=== PATIENT | male | born 1945 | race Caucasian/White ===

== ENCOUNTER 2016-05-11 10:14 | Day surgery (SDC) | payer MEDICARE, OTHER ==
[~2016-05-11] VITALS: Ht 170.2 cm; Wt 73.0 kg
[~2016-05-11 10:14] MED LIST: ASCO-294 PO; BENZ-12 PO; CA C1TAB35 PO; CITA40TA13 PO; LACT1CAP73 PO; LOVA20TA PO; Lactated Ringer's 1,000 ML IV ONE; METH750T3 PO; MULT-1007 PO; OMEG300C3 PO; OMEP20TA86 PO; PRED50TA PO; RESVERATROL; SUCR1TAB PO; UBID100C25 PO; VIT-10 PO; [UNRECOGNIZED DRUG - CODE] MC
[2016-05-11] MEDS ORDERED: Propofol 10,000 mCg/mL 20 mL Inj ONE (10:15)
[2016-05-11 11:04] VITALS: BP 128/71; PULSE 57; RESP 16; O2SAT 97
[2016-05-11] MEDS ORDERED: Lactated Ringer's 1,000 ML IV SCH (11:24)
--- NOTE | 2016-05-11 11:24 | PCM.HPANE ---
Patient Data Surgeon Admitting Provider: Attending Provider:Francisco Kwan MD Primary Care Physician:Shailesh Ferrell MD Other Provider:[facility] Reason for Visit Screening, Eosinophilic Esophagitis Ht/WT & BMI Height (Feet): 5 Height (Inches): 7 Weight (Kilograms): 73 Body Mass Index 25.00 Allergies Coded Allergies: No Known Allergies (Verified Allergy, Unknown, 05/11/16) Past Anesthesia History Anesthesia History: Denies:: Abnormal Airway, Anesthesia Reactions, Difficult Intubation, Fam Anesthesia Reaction, Fam Malignant Hypertherm, Malignant Hyperthermia Diabetes History Hx Diabetes?: No MRSA MRSA: No Medications Hypertension Medication: No Home Meds Incl Beta Rodney: No Reported Medications Omeprazole 20 Mg Tablet.dr20 Mg PO BID Ref 0 05/10/16 Ascorbate Calcium (Vitamin C)500 Mg Szdnjx918 Mg PO DAILY 09/02/15 Lactobacillus Combo No.11 (Probiotic)1 Each Cap.sprink1 Each PO DAILY 09/02/15 Vit A/C/E AC/Znox/Cupric Oxide (Eye Vitamin-Minerals Tablet)7,160-113 Tablet1 Each PO 09/02/15 Citalopram 40 Mg Aenmwm83 Mg PO DAILY 30 Days Ref 0 09/02/15 Ca Carb/D3/Argnin/Inos/Silicon (Bone Density Calcium + D Cplt)1 Each Tablet1 Each PO DAILY 09/02/15 Multivitamin (Multi-Vitamin Daily)1 Each TabletUnknown Dose PO 02/12/14 Calipatria-3 Fatty Acids (Fish Oil)300 Mg Fllyvmg722 Mg PO 02/12/14 Ubidecarenone (Co Q-10)100 Mg Rnuxlru052 Mg PO 02/12/14 Lovastatin 20 Mg Pzulfb29 Mg PO HS #30 TABLET Ref 0 02/12/14 Discontinued Reported Medications Benzonatate (Tessalon Perle)100 Mg Hnzqpfl938 Mg PO TID PRN For Cough 05/10/16 Prednisone (PredniSONE)50 Mg Inaouw50 Mg PO DAILY Ref 0 05/10/16 Sucralfate 1 Gm Tablet1 Gm PO QID 30 Days Ref 0 09/02/15 Methocarbamol 750 Mg Ttwljd921 Mg PO QID PRN For Spasm Ref 0 09/02/15 Boswellia Nicole Extract 25 Gm Mygneq86 Gm MC DAILY 09/02/15 [Resveratrol] No Conflict Check 02/12/14 History HEENT History: Denies:: Abnormal Airway Difficult Intubation Dysphagia Hearing Problem Denture Type: Full- Lower Hx of Heart Problems?: No Cardiovascular History: Denies:: AICD Atrial Fibrillation Chest Pain Hypertension Pacemaker Valvular Heart Disease Hx of Respiratory Problem?: No Respiratory History: Denies:: Asthma COPD Cough Hemoptysis Pneumonia Tuberculosis Neurological History: Denies:: CVA Hx of GI Problems?: Yes Gastrointestinal History: Positive for:: Gastroesphageal Reflux Denies:: Cirrhosis Diverticulitis Gall Bladder Disease Hiatal Hernia Rectal Bleeding Hx of Problems?: No Musculoskeletal History: Denies:: Joint Replacement Psycho Social History: Denies:: Anxiety Hx Depression Hx Surgeries?: Yes (ROTATOR CUFF RT AND LEFT, HERNIA, TESTICULAR CANCER) Hx Any Other Health Problems?: Yes Hx Diabetes: No Hx Alcohol Use: No Smoking Status: Never Smoker Stop/Bang Treated for Sleep Apnea?: No Do You Have a CPAP Machine?: No S-Snoring: Do You Snore Loudly: No T-Tired: feel tired, fatigued: No O-Obsered: Observed not breath: No P-Blood Pressure: treated: No B- Body Mass Index > 35 kg/m2: No A- Age over 50: Yes N- Neck Large Circumference: No G- Gender Male: Yes VISHAL Total Score: 2 VISHAL Risk Assessment: Low Risk, <3 Yes Risk Assessment Category Category 1A: Patient has history of documented sleep apnea, and HAS NOT received any narcotic, sedative or anesthesia administration during this stay. Category 1B: Patient has history of documented sleep apnea, and HAS received any narcotic , sedative or anesthesia administration during this stay Category 2: Patient has SUSPECTED Obstructive Sleep Apnea, and HAS received any narcotic , sedative or anesthesia administration during this stay. Category 3: Patient has SUSPECTED Obstructive Sleep Apnea and HAS NOT received narcotic, sedative or anesthesia administration during this stay. Category 4: Outpatient in Procedural Areas with known sleep apnea or who screen positive for High Risk via the STOP/BANG questionnaire. Exam Exam Vital Signs Vital Signs Date Time Temp Pulse Resp B/P Pulse Ox O2 Delivery O2 Flow Rate FiO2 05/11/16 11:04 36.5 57 16 128/71 97 Room Air General Appearance: Oriented X3 HEENT/AIRWAY: MP 2 Lungs: Normal Air Movement Heart: Regular Rate/Rhythm Plan Impression Patient chart reviewed, patient interviewed and anesthestic plan with risks, benefits, and alternatives discussed, and informed consent obtained. ASA Physical Status: ASA2 Mod Systemic Disease Anesthetic Plan: MAC Bene/Risks/Altern/Consents: Yes HP Complete Prior to Induction: Yes Chaka Jimenez MD May 11, 2016 11:24
[2016-05-11] MEDS ORDERED: Ondansetron 2 mg/mL 2 mL Inj IVPUSH PRN (11:25)
[2016-05-11] MEDS ORDERED: MetoCLOpramide 5 mg/mL 2 mL Inj IVPUSH PRN (11:25)
--- NOTE | 2016-05-11 12:13 | PCM.ENDEGD ---
EGD Date of Service: May 11, 2016 Physician Francisco Kwan MD Pre Procedure Diagnosis: EOE Post Procedure Dx & Findings: EOE Procedure Esophagogastroduodenoscopy PROCEDURE IN DETAIL: After proper sedation, Olympus video endoscope was inserted into patient's mouth and esophagus was successfully intubated. Scope introduced esophagus. Esophagus showed normal shiny whitish mucosa consistent with squamous cell component. Z line was intact at 42 cm from the incisors. Biopsies obtained at the Z line and in the midesophagus. This to see if he has EOE activity. The scope further advanced to the stomach. Stomach showed normal shiny mucosa with normal appearing rugae folds without any ulcer mass erosion. Cardia fundus body antrum pylorus were all visualized. Retroflexion was done. Stomach was easily inflated and deflatable using air. Scope further events to the distal duodenum. Duodenum revealed normal villous structures with normal appearing folds without any mass ulcer erosion. Impression EoE status post biopsies Recommendation Follow-up with Dr. Kelly Presedation Assessment Risks and Benefits Informed consent was obtained from the patient after all risks and benefits including but not limited to drug reaction, infection, pain, bleeding, perforation, as well as alternatives were discussed. Patient monitoring Continuous pulse oximetry, cardiac monitoring, blood pressure monitoring, IV access, and oxygen at 2L per nasal cannula. Complications There were no periprocedural complications identified. Post Procedure Plan Post Procedure Recommendations 1. Restrict activities today. 2. Resume normal activities in the morning. 3. Resume medications. 4. GERD behavioral modification: - Avoid fatty, acidic, spicy, large meals - Do not lie down after meals - Do not eat or drink anything for at least 2 1/2 hours before going to bed at night - Discontinue tobacco and alcohol - Decrease or avoid caffeine - Avoid chocolate and mints - Decrease weight - Avoid aspirin and non steroidal anti-inflammatory agents (NSAID) such as Aleve, Advil, Mobic, Naproxen, Ibuprofen, etc 5. Add proton pump inhibitor. Take 30 minutes before 1st meal of the day. 6. Patient informed of normal post procedure side effects as bloating, drowsiness, blood streaking in the stool 7. If gastric biopsy reveal H.pylori, continue with appropriate treatment 8. If small bowel biopsy reveals celiac, continue with appropriate treatment 9. Please don't hesitate to call me with any questions Francisco Kwan MD May 11, 2016 12:13
--- NOTE | 2016-05-11 12:39 | PCM.ENDCOL ---
Colonoscopy Date of Service: May 11, 2016 Physician Francisco Kwan MD Pre Procedure Diagnosis: Personal history of colon polyps and screening Post Procedure Dx & Findings: Polyp hemorrhoids diverticuli Procedure Colonoscopy PROCEDURE IN DETAIL: Prep adequate Withdrawal time 13 minutes After unremarkable rectal examination the Olympus video colonoscope was inserted patient's anal canal and was advanced to cecum. Landmarks were identified including the ileocecal valve and appendiceal orifice. Scope was withdrawn systematically. Visualized colonic mucosa showed healthy shiny mucosa with normal healthy-appearing vasculature. In the transverse colon, there was a 4 mm polyp which was removed completely using cold snare. Also in the transverse colon there was a 1 mm polyp which was removed completely using cold forceps. In the rectum, there was a 1 mm polyp which was removed completely using cold forceps. In the sigmoid colon there were several small diverticuli. In the rectum retroflexion was done which showed hemorrhoids. Anal canal was inspected carefully on the way out and hemorrhoids noted. Impression Polyps 3 status post complete removal Diverticuli Hemorrhoids Recommendation Repeat colonoscopy 3 years Diverticular diet Presedation Assessment Risks and Benefits Informed consent was obtained from the patient after all risks and benefits including but not limited to drug reaction, infection, pain, bleeding, perforation, as well as alternatives were discussed. Patient monitoring Continuous pulse oximetry, cardiac monitoring, blood pressure monitoring, IV access, and oxygen at 2L per nasal cannula. Complications There were no periprocedural complications identified. Post Procedure Plan Post Procedure Recommendations 1. Restrict activities today. 2. Resume normal activities in the morning. 3. Resume medications. 4. Patient informed of normal post procedure side effects as bloating, drowsiness, blood streaking in the stool. 5. average risk CRCS. If colon polyps come back as: -Hyperplastic- can repeat colonoscopy in 10 years -Tubular adenoma- repeat colonoscopy in 5 years -Tubulovillous/villous adenoma- repeat colonoscopy in 3 years -If any dysplasia- return to clinic as soon as possible 6. Please don't hesitate to call me with any questions. Francisco Kwan MD May 11, 2016 12:39
[2016-05-11 12:41] VITALS: BP 118/68; PULSE 49; RESP 14; O2SAT 97
[2016-05-11 12:52] VITALS: BP 118/69; PULSE 86; RESP 14; O2SAT 96
[2016-05-11 13:02] VITALS: BP 142/88; PULSE 56; RESP 14; O2SAT 100
--- NOTE | 2016-05-11 13:48 | PCM.ANEP1 ---
Post Anesthesia Phase 1 PACU Phase 1 Assessment Date of Service: May 11, 2016 Vital Signs Vital Signs Date Time Temp Pulse Resp B/P Pulse Ox O2 Delivery O2 Flow Rate FiO2 05/11/16 13:02 56 14 142/88 100 Room Air 05/11/16 12:52 86 14 118/69 96 Room Air 05/11/16 12:41 49 14 118/68 97 Room Air 05/11/16 11:04 36.5 57 16 128/71 97 Room Air Anesthetic Administered: MAC Level of Alertness: Awake, talking Pain: No Nausea or Vomiting: No Oxygen Delivery: Room Air Lungs: Normal Air Movement Chaka Jimenez MD May 11, 2016 13:48
--- NOTE | 2016-05-11 13:48 | PCM.ANEP2 ---
Post Anesthesia Evaluation ASA/CMS Post Anesthesia VS in Patient's Normal Range?: Yes Resp Stable; Airway Patent?: Yes CV Function & Hydration Stable: Yes Mental Status Recovered?: Yes Pain control Satisfactory?: Yes N/V Control Satisfactory?: Yes Chaka Jimenez MD May 11, 2016 13:48
--- NOTE | 2016-05-12 14:26 | PATH ---
SURGICAL PATHOLOGY Attending Physician:Francisco Kwan M.D. CASE STATUS: Signed Out PATIENT NAME: NOHEMI RAMSAY PID: [id number] : 1945 DATE COLLECTED:05/11/2016 20:25 SPECIMEN: 1: Esophagus, Biopsy 2: Colon, Biopsy 3: Rectum, Biopsy CLINICAL HISTORY: 1). DISTAL ESOPHAGUS BIOPSY 2). TRANSVERSE POLYPS 3). RECTAL POLYP FINAL DIAGNOSIS: 1.DISTAL ESOPHAGUS BIOPSY: FRAGMENTS OF SQUAMOUS MUCOSA WITH LARGE NUMBERS OF INTRAEPITHELIAL EOSINOPHILS NUMBERING GREATER THAN 50 PER HIGH-POWERED FIELD, WITH ASSOCIATED REACTIVE EPITHELIAL CHANGES CONSISTENT WITH EOSINOPHILIC ESOPHAGITIS (SEE COMMENT). NO GASTRIC-TYPE EPITHELIUM IDENTIFIED. Negative for dysplasia and malignancy. 2.TRANSVERSE COLON POLYPS: SESSILE SERRATED ADENOMA INVOLVING FOUR BIOPSY FRAGMENTS. TUBULAR ADENOMA INVOLVING SINGLE BIOPSY FRAGMENT. 3.RECTAL POLYP: HYPERPLASTIC POLYP. ICD10 code D12.3 NOTE: The changes present in part 1 would be consistent with a diagnosis of eosinophilic esophagitis. Intraepithelial eosinophils can be found within the squamous epithelium at the squamocolumnar junction as a result of chronic reflux; however, the absence of gastric-type epithelium in this material and the large number of eosinophils present would favor a diagnosis of eosinophilic esophagitis. Suggest clinical correlation. GROSS DESCRIPTION: The specimen is received in three formalin filled containers labeled with the patient's name. 1). The specimen is sublabeled "distal esophagus" and consists of 4 portions of tissue which aggregate to 0.5 x 0.3 x 0.2 CM. The specimen is entirely submitted in cassette 1A. 2). The specimen is sublabeled "transverse polyps" and consists of 5 portions of tissue which aggregate to 0.6 x 0.64 x 0.3 CM. The specimen is entirely submitted in cassette 2A. 3). The specimen is sublabeled "rectal polyp" and consists of a 0.2 x 0.2 x 0.2 CM portion of tissue which is entirely submitted in cassette 3A. 05/11/2016 DAC MICRO DESCRIPTION: See diagnosis. ICD-9 CODES: CPT CODES: 1: 77263 2: 46211 3: 73352 Electronically Signed Out Santiago Jose MD [facility] Pathology [facility] [address] [place] [id number] Technical component performed at [facility], [address], [place], [address]
== END 2016-05-11 23:59 | disposition home or self-care (01) ==
LOC: END 10:14
PROVIDERS: ATTEND Internal Medicine
DX: Z12.11 Encounter for screening for malignant neoplasm of colon (principal); D12.3 Benign neoplasm of transverse colon; K62.1 Rectal polyp; K64.9 Unspecified hemorrhoids; K57.30 Diverticulosis of large intestine without perforation or abscess without bleeding; K20.0 Eosinophilic esophagitis; K22.70 Barrett's esophagus without dysplasia; K44.9 Diaphragmatic hernia without obstruction or gangrene; F32.9 Major depressive disorder, single episode, unspecified; K21.9 Gastro-esophageal reflux disease without esophagitis; F41.9 Anxiety disorder, unspecified; E78.5 Hyperlipidemia, unspecified; F42.9 Obsessive-compulsive disorder, unspecified
CPT/HCPCS: 43239; 45380; 45385; 88305; J7120

== ENCOUNTER 2016-06-01 00:53 | Emergency (ER) | payer MEDICARE, OTHER ==
[~2016-06-01] VITALS: Ht 170.2 cm; Wt 71.8 kg
[~2016-06-01 00:53] MED LIST changes: -BENZ-12 PO; -Lactated Ringer's 1,000 ML IV ONE; -METH750T3 PO; -PRED50TA PO; -RESVERATROL; -SUCR1TAB PO; -[UNRECOGNIZED DRUG - CODE] MC
[2016-06-01 01:04] VITALS: BP 137/75; PULSE 61; RESP 18; O2SAT 97
[2016-06-01] MEDS ORDERED: Fluorescein 0.6 mg Ophthalmic Strip RIGHT_EYE ONE (01:25)
[2016-06-01] MEDS ORDERED: 0.9% Sodium Chloride Inhalation Solution RIGHT_EYE ONE (01:25)
[2016-06-01] MEDS ORDERED: Tetracaine 0.5% 4 mL Ophthalmic Solution RIGHT_EYE ONE (01:25)
--- NOTE | 2016-06-01 01:25 | ED.REPORT ---
HPI-Eye Problem Date of Service Jun 01, 2016 ED Provider: Sharif Leija MD A 71 year old male with a history of GERD and testicular cancer presents to the ED with right eye pain, redness, and purulent discharge onset 22:30, while trying to remove his contact. The patient had not worn his contacts in some time , but decided to wear his last pair yesterday. He wore his extended-wear contacts for 24 hours before they began to bother him. The patient removed the left contact easily this evening but had trouble with his right contact. It took him several tries to remove this contact but he was finally successful. The patient denies other symptoms. Nursing Notes Stated Complaint: RIGHT EYE PAIN Chief Complaint: Eye Nursing Notes Reviewed: Yes ([facility]) Allergies: Coded Allergies: No Known Allergies (Verified Allergy, Unknown, 05/11/16) Scheduled Ascorbate Calcium (Vitamin C) 500 Mg Tablet 500 MG PO DAILY Ca Carb/D3/Argnin/Inos/Silicon (Bone Density Calcium + D Cplt) 1 Each Tablet 1 EACH PO DAILY Citalopram (Citalopram) 40 Mg Tablet 40 MG PO DAILY Lactobacillus Combo No.11 (Probiotic) 1 Each Cap.sprink 1 EACH PO DAILY Lovastatin (Lovastatin) 20 Mg Tablet 20 MG PO HS Omeprazole (Omeprazole) 20 Mg Tablet.dr 20 MG PO BID Miscellaneous Medications Multivitamin (Multi-Vitamin Daily) 1 Each Tablet Unknown Dose PO Kopperl-3 Fatty Acids (Fish Oil) 300 Mg Capsule 300 MG PO Ubidecarenone (Co Q-10) 100 Mg Capsule 100 MG PO Vit A/C/E AC/Znox/Cupric Oxide (Eye Vitamin-Minerals Tablet) 7,160-113 Tablet 1 EACH PO General Time Seen by MD: 01:22 Chief Complaint Right eye affected, Discharge... (Purulent), Pain, Redness Hx Obtained From: Patient Arrived By: Walk-in Sudden in Onset?: Yes Onset Occurred: 1 - 4 hours ago Symptom Duration: Since onset Location: : Eye right Quality: Painful Severity: Current: Moderate Severity: Maximum: Moderate Pertinent Negative: Pt denies other symptoms Pertinent Negative: Relieved by nothing Related History: Reports: Contact lens use Immunizations: Unknown Recent Healthcare: No recent doctor visit Past Medical History Past Medical History GERD Testicular cancer Past Surgical History Hernia repair Rotator cuff repair Rx6, Lx1 Testicular surgery Denies: Appendectomy, Cholecystectomy Smoking History Never Smoker Ambulatory Status Independent Review of Systems Constitutional: Denies: Fever Eyes: Reports: Discharge right (Purulent), Eye pain right, Redness right Complete sys rev & neg: except as marked. Respiratory: Denies: Non-productive cough, Shortness of breath GI: Denies: Diarrhea, Vomiting Physical Exam Initial Vital Signs Vital Signs (First) Date Time Temp Pulse Resp B/P Pulse Ox O2 Delivery O2 Flow Rate FiO2 06/01/16 01:04 36.6 61 18 137/75 97 Room Air Initial VS: Reviewed, Vital signs normal Neck: Supple, Full range of motion Respiratory: Breath sounds normal, Clear to auscultation, No respiratory distress Cardiovascular: Regular rate & rhythm, Heart sounds normal Skin: Warm, Dry, No cyanosis Neurologic: Alert, Oriented, Nonfocal Psychiatric: Mood/affect normal, Behavior normal, Normal thought content Head / Eyes: Atraumatic, Normocephalic, No corneal abrasion Cornea/Anterior Chamber: Positive: Fluorescein uptake R... (Diffuse), Negative: Foreign body R..., Hyphema R Conjunctiva / Sclera: Positive: Discharge R... (Purulent), Injected right ( Marked) Trauma - General: Negative: Laceration No ulcer Anterior chamber deep and clear General/Constitutional: Awake, Alert, No acute distress Re-Eval/Medical Decision Med Decision/Clinical Course This is a 71-year-old male who points of right eye discomfort. He recently got out of his contact lenses which he had worn a while, but amended his abdomen for 24 hours and started up a little irritation, so started move the left contacts lens which came out easily, the right contact lens was really difficult to remove and reports quite a struggle. Since its removal was developed increasing redness, swelling and pain, as well as some purulent appearing drainage. Denies fever. He has no photophobia. Vision is preserved without interval change. On exam he has marked conjunctival injection, there is a bit of trace purulence. However there is no retained foreign body-he was able to remove the contact lens, there is no laceration or ulceration evident on fluorescein staining from his fingernails. There is a diffuse floor seen injection without a classic abrasion, there is no hyphema, and the anterior chambers deep and clear. Lids and lashes are normal. Given the involvement of contact lenses, the patient's pain started on ciprofloxacin eyedrops. He is advised not to wear the contact lenses at all. He has been discharged and ibuprofen. He has been given a topical anesthetic to use the next 2035 hrs. given recent studies indicate it is safe-but is calm with a clear warning that should only be needing it for 24-36 hours and since is to be markedly improved-and if not clearly improved, that close follow-up with ophthalmology would be indicated. Return precautions reviewed. Patient's discharge much improved condition. Source of Hx: Old records Re-Evaluation/Progress : Time of Eval: 01:42 Patient Status: Condition improved Re-Evaluation/Progress Note: Discussed with patient physical exam findings, diagnosis, and plan for discharge. Follow-up and return to the ER instructions given. Patient agrees with plan for care and all questions were addressed. Differential Diagnosis: Positive: Conjunctivitis, bacterial, Corneal abrasion, Negative: Corneal laceration, Corneal ulceration, Endophthalmitis, Foreign body, corneal, Foreign body, intraocular, Foreign body, lid, Globe rupture, Herpes simplex keratitis, Hyphema, Keratitis, Lens dislocation, Lens subluxation , Orbital cellulitis, Orbital fracture, Periorbital cellulitis, Preseptal cellulitis, Pterygium, Retinal artery occlusion, Retinal detachment, Retinal vein occlusion, Sickle cell disease, Subconjunctiva hemorrhage Counseled Regarding: Diagnosis, Need for follow-up, When/why to return to ED Discharge & Departure Primary Impression: Conjunctivitis Conjunctivitis type: acute Acute conjunctivitis type: bacterial Laterality : right Qualified Code: H10.021 - Other mucopurulent conjunctivitis, right eye Disposition: Home Discharge Condition All VS Reviewed: Yes Condition: Improved Additional Instructions: 1. Do not use your contacts for at least 2 weeks. 2. Put 2 drops of the antibiotic ciprofloxacin in the right eye every ~2 hours for the next day. Then you can continue every 4 hours after the first day for an additional 4 days. 3. Take ibuprofen 400mg - 800mg three times a day for pain as needed. 4. You can use the numbing eye drops if needed for 1-2 days ONLY. As discussed, symptoms are expected to be improving RAPIDLY over the next ~26 hours. 5. If not CLEARLY improved in 36 hours, you need to be seen and rechecked by the opthomologist. Call Dr Heller's office as needed. Referrals: Shailesh Ferrell MD (PCP) Scribe Attestation Portions of this note were transcribed by Jessica Hernández. I, Dr. Leija, personally performed the history, physical exam, and medical decision-making; I reviewed and confirmed the accuracy of the information in the transcribed note. Signed by: Sally Scott, 06/01/2016, 03:09 copies to: Shailesh Ferrell MD, Matthew F MD Jun 01, 2016 01:25 JESSICA HERNÁNDEZ Jun 01, 2016 01:41
[2016-06-01] MEDS ORDERED: Ciprofloxacin 0.3% 5 mL Ophthalmic Solution RIGHT_EYE ONE (01:55)
[2016-06-01 03:05] VITALS: BP 137/75; PULSE 61; RESP 18; O2SAT 97
== END 2016-06-01 03:06 | disposition home or self-care (01) ==
LOC: SED 00:53
DX: H10.021 Other mucopurulent conjunctivitis, right eye (principal); K21.9 Gastro-esophageal reflux disease without esophagitis